=== PATIENT | male | born 1960 | race Caucasian/White ===

== ENCOUNTER 2019-08-02 00:31 | Day surgery (SDC) | payer OTHER, SELFPAY ==
[2019-07-30 14:46] VITALS: BMI 38.6
[2019-08-02 08:50] VITALS: BP 127/85; PULSE 58; RESP 20; TEMP 36.3; O2SAT 95
[2019-08-02] MEDS: LACTATED RINGERS 1,000 ML 150 ML IV CONT (08:59)
[2019-08-02 09:08] LABS: Glucose Point of Care 95 (65-105)
--- NOTE | 2019-08-02 09:12 | P.HP_ITS ---
History of Present Illness History of Present Illness Consent: Risks, benefits, and alternatives have been discussed and questions answered. Patient agrees to proceed with procedure. Chief complaint: Hx Colon Polyps Narrative: Gilbert Coulter is a 59 year old W male undergoing colonoscopy secondary history of colonic polyps. Last colonoscopy was 4 years ago. The bowel prep was only fair at that time there are several aunts and uncles on his mother side of the family with colon cancer. Patient is asymptomatic. [facility] Past Medical History Medical History Essential (primary) hypertension Surgical History Surgical History (Updated 08/02/19 @ 09:14 by Eddi Trejo MD) Status post surgical removal of ganglion cyst Social History Social History Smoking status: Never smoker Alcohol intake: current Meds Home Medications and Allergies Home Medications Medication Instructions Recorded Confirmed Type amlodipine 5 mg tablet 5 mg PO DAILY 04/29/19 07/30/19 History aspirin 81 mg tablet,delayed 81 mg PO DAILY 04/29/19 07/30/19 History release clopidogrel 75 mg tablet 75 mg PO DAILY 04/29/19 07/30/19 History cyanocobalamin (vitamin B-12) 1,000 mcg PO DAILY 04/29/19 07/30/19 History 1,000 mcg tablet diazepam 2 mg tablet 2 mg PO BID PRN 04/29/19 07/30/19 History lysine 500 mg tablet 500 mg PO DAILY 04/29/19 07/30/19 History metformin 500 mg tablet,extended 2,000 mg PO QPM tablet 04/29/19 07/30/19 History release 24 hr metoprolol tartrate 50 mg tablet 50 mg PO DAILY 04/29/19 07/30/19 History ondansetron HCl 4 mg tablet 4 mg PO Q8H 04/29/19 07/30/19 History hydrochlorothiazide 12.5 mg capsule 12.5 mg PO DAILY #30 cap 05/03/19 07/30/19 Rx lisinopril 40 mg tablet 40 mg PO DAILY #30 tablet 05/04/19 07/30/19 Rx simvastatin 40 mg tablet 40 mg PO DAILY #30 tablet 06/28/19 07/30/19 Rx isosorbide mononitrate 30 mg 30 mg PO DAILY #30 tablet 07/27/19 07/30/19 Rx tablet,extended release 24 hr Allergies Allergy/AdvReac Type Severity Reaction Status Date / Time No Known Allergies Allergy Verified 08/02/19 08:50 Vital Signs Vital Signs - 24 hr 08/02/19 08:50 Temperature 36.3 C L Pulse Rate 58 L Respiratory Rate 20 Blood Pressure 127/85 Pulse Oximetry 95 Exam Const: Orientation/consciousness: patient oriented x3 Resp: Auscultation: clear to auscultation bilaterally Cardio: Rate: regular rate Rhythm: regular rhythm Heart sounds: no murmurs GI: GI Palp: Yes Soft to palpation, No Tenderness to palpation present (GI), Yes No hepatosplenomegaly present and No Palpable mass present Auscultation: normal bowel sounds Neuro: General: patient oriented x3 and no focal motor deficits Extrem: General: no pedal edema Assessment and Plan Additional Plan screening colonoscopy secondary history of colonic polyps and a family history of colon cancer
--- NOTE | 2019-08-02 09:17 | WPDANESEPPF ---
Anes - Initial Pre Proc Eval Procedure: Operation Date: 08/02/19 10:00 Proposed Procedures p Screening Colonoscopy - Eddi Trejo MD Date/Time: 08/02/19 09:17 Surgeon: Eddi Trejo MD Pre Op Diagnosis: Hx Colon Polyps Patient Data Age: 59 Gender: M Height: 5 ft 6 in Weight: 108.6 kg Last Vital Signs Temp 36.3 C L 08/02/19 08:50 Pulse 58 L 08/02/19 08:50 Resp 20 08/02/19 08:50 BP 127/85 08/02/19 08:50 Pulse Ox 95 08/02/19 08:50 Allergies Allergy/AdvReac Type Severity Reaction Status Date / Time No Known Allergies Allergy Verified 08/02/19 08:50 Home Medications Medication Instructions Recorded Confirmed Type amlodipine 5 mg tablet 5 mg PO DAILY 04/29/19 07/30/19 History aspirin 81 mg tablet,delayed 81 mg PO DAILY 04/29/19 07/30/19 History release clopidogrel 75 mg tablet 75 mg PO DAILY 04/29/19 07/30/19 History cyanocobalamin (vitamin B-12) 1,000 mcg PO DAILY 04/29/19 07/30/19 History 1,000 mcg tablet diazepam 2 mg tablet 2 mg PO BID PRN 04/29/19 07/30/19 History lysine 500 mg tablet 500 mg PO DAILY 04/29/19 07/30/19 History metformin 500 mg tablet,extended 2,000 mg PO QPM tablet 04/29/19 07/30/19 History release 24 hr metoprolol tartrate 50 mg tablet 50 mg PO DAILY 04/29/19 07/30/19 History ondansetron HCl 4 mg tablet 4 mg PO Q8H 04/29/19 07/30/19 History hydrochlorothiazide 12.5 mg capsule 12.5 mg PO DAILY #30 cap 05/03/19 07/30/19 Rx lisinopril 40 mg tablet 40 mg PO DAILY #30 tablet 05/04/19 07/30/19 Rx simvastatin 40 mg tablet 40 mg PO DAILY #30 tablet 06/28/19 07/30/19 Rx isosorbide mononitrate 30 mg 30 mg PO DAILY #30 tablet 07/27/19 07/30/19 Rx tablet,extended release 24 hr Laboratory Tests 08/02/19 09:03 POC Capillary Glucose 95 mg/dl mg/dl (65-105) Patient hx anesthesia problems: none Family hx anesthesia problems: none PMFSH Past Medical History Medical History Essential (primary) hypertension Surgical History Surgical History Status post surgical removal of ganglion cyst Social History Social History Smoking status: Never smoker Alcohol intake: current Anes - Eval Final PreProcedure Day of Procedure 08/02/19 09:17 Patient weight: overweight Heart: regular rate and rhythm Lungs: clear to auscultation Airway: Mallampati scale class II Neurological: alert and oriented Last oral intake: >/= 8 hours ASA classification: III Emergent: no Anesthetic plan: proceed Anesthesia type and monitoring: general GIVS and standard monitoring Informed Consent: The patient's anesthetic plan and its attendant risks and benefits were discussed with the patient/family/POA. Questions were solicited and answers provided to the satisfaction of the patient/family/POA.
[2019-08-02 10:25] VITALS: BP 100/65; PULSE 61; RESP 20; O2SAT 92
[2019-08-02 10:35] VITALS: BP 103/67; PULSE 56; RESP 16; O2SAT 94
[2019-08-02 10:45] VITALS: BP 96/61; PULSE 52; RESP 15; O2SAT 98
== END 2019-08-02 11:00 | disposition home or self-care (01) ==
PROVIDERS: PCP Family Medicine; Visit Provider Internal Medicine Gastroenterology
PROC: 0DJD8ZZ Inspection of Lower Intestinal Tract, Via Natural or Artificial Opening Endoscopic (ICD-10-PCS; CPT 45378; principal; 2019-08-02 10:00)
DX: Z12.11 Encounter for screening for malignant neoplasm of colon (principal); Z86.010 Personal history of colon polyps; Z80.0 Family history of malignant neoplasm of digestive organs; I10 Essential (primary) hypertension; Z79.82 Long term (current) use of aspirin; Z79.02 Long term (current) use of antithrombotics/antiplatelets; Z79.84 Long term (current) use of oral hypoglycemic drugs
CPT/HCPCS: 45378; J2001; J2704; J7120

== ENCOUNTER 2019-08-23 01:11 | Day surgery (SDC) | payer OTHER, SELFPAY ==
[2019-08-23 11:25] VITALS: BP 158/84; PULSE 50; RESP 14; TEMP 36.6; O2SAT 99; BMI 37.9
--- NOTE | 2019-08-23 11:28 | P.HP_ITS ---
History of Present Illness History of Present Illness Consent: Risks, benefits, and alternatives have been discussed and questions answered. Patient agrees to proceed with procedure. Chief complaint: History Of polyps,neoplasm screening Narrative: Gilbert Coulter is a 59 year old W male referred for colonoscopy secondary history of colonic polyps. Last colonoscopy was 4 years ago. There is a history of colon cancer in several aunts and uncles on his mother side of the family. Patient had attempted colonoscopy approximately 6 weeks ago this could not be performed secondary to inadequate bowel prep. Patient returns now for examination. There been no interval changes in his medical history since then. He did stop his Plavix 4 days ago. [facility] Past Medical History Medical History Essential (primary) hypertension Surgical History Surgical History Status post surgical removal of ganglion cyst Social History Social History Smoking status: Never smoker Alcohol intake: current Meds Home Medications and Allergies Home Medications Medication Instructions Recorded Confirmed Type amlodipine 5 mg tablet 5 mg PO DAILY 04/29/19 08/23/19 History aspirin 81 mg tablet,delayed 81 mg PO DAILY 04/29/19 08/23/19 History release clopidogrel 75 mg tablet 75 mg PO DAILY 04/29/19 08/23/19 History cyanocobalamin (vitamin B-12) 1,000 mcg PO DAILY 04/29/19 08/23/19 History 1,000 mcg tablet diazepam 2 mg tablet 2 mg PO BID PRN 04/29/19 08/23/19 History lysine 500 mg tablet 500 mg PO DAILY 04/29/19 08/23/19 History metoprolol tartrate 50 mg tablet 50 mg PO DAILY 04/29/19 08/23/19 History ondansetron HCl 4 mg tablet 4 mg PO Q8H 04/29/19 08/23/19 History hydrochlorothiazide 12.5 mg capsule 12.5 mg PO DAILY #30 cap 05/03/19 08/23/19 Rx lisinopril 40 mg tablet 40 mg PO DAILY #30 tablet 05/04/19 08/23/19 Rx simvastatin 40 mg tablet 40 mg PO DAILY #30 tablet 06/28/19 08/23/19 Rx isosorbide mononitrate 30 mg 30 mg PO DAILY #30 tablet 07/27/19 08/23/19 Rx tablet,extended release 24 hr metformin 500 mg tablet,extended 2,000 mg PO QPM #120 tablet 08/18/19 08/23/19 Rx release 24 hr Allergies Allergy/AdvReac Type Severity Reaction Status Date / Time No Known Allergies Allergy Verified 08/23/19 11:22 Vital Signs Vital Signs - 24 hr 08/23/19 11:25 Temperature 36.6 C Pulse Rate 50 L Respiratory Rate 14 Blood Pressure 158/84 H Pulse Oximetry 99 Exam Const: Orientation/consciousness: patient oriented x3 Resp: Auscultation: clear to auscultation bilaterally Cardio: Rate: regular rate Rhythm: regular rhythm Heart sounds: no murmurs GI: GI Palp: Yes Soft to palpation, No Tenderness to palpation present (GI), Yes No hepatosplenomegaly present and No Palpable mass present Auscultation: normal bowel sounds Neuro: General: patient oriented x3 and no focal motor deficits Extrem: General: no pedal edema Assessment and Plan Additional Plan Screening colonoscopy secondary history of colonic polyps
[2019-08-23] MEDS: LACTATED RINGERS 1,000 ML 150 ML IV CONT (11:30)
[2019-08-23 11:35] LABS: Glucose Point of Care 94 (65-105)
[2019-08-23 11:54] VITALS: BP 108/70; PULSE 56; RESP 22; O2SAT 98
[2019-08-23 12:04] VITALS: BP 106/74; PULSE 50; RESP 21; O2SAT 98
[2019-08-23 12:12] VITALS: BP 128/66; PULSE 46; RESP 18; O2SAT 99
== END 2019-08-23 12:17 | disposition home or self-care (01) ==
PROVIDERS: PCP Family Medicine; Visit Provider Internal Medicine Gastroenterology
PROC: 0DJD8ZZ Inspection of Lower Intestinal Tract, Via Natural or Artificial Opening Endoscopic (ICD-10-PCS; CPT 45378; principal; 2019-08-23 12:00)
DX: Z12.11 Encounter for screening for malignant neoplasm of colon (principal); K64.8 Other hemorrhoids; K64.4 Residual hemorrhoidal skin tags; Z86.010 Personal history of colon polyps; I10 Essential (primary) hypertension; Z79.82 Long term (current) use of aspirin; Z79.02 Long term (current) use of antithrombotics/antiplatelets; Z79.84 Long term (current) use of oral hypoglycemic drugs
CPT/HCPCS: 45378; J2704; J7120

== ENCOUNTER 2020-06-22 13:22 | Outpatient (CLI) | payer OTHER, SELFPAY ==
--- NOTE | ~2020-06-22 | XR_ITS ---
XR lumbar spine min 4V DATE: 06/22/2020 13:42 INDICATION: Low back pain, left sciatica TECHNIQUE: AP, lateral, bilateral oblique views, coned lateral lumbosacral view COMPARISON: None FINDINGS: Diffuse osteopenia. There are 4 functional lumbar vertebrae. Normal alignment of the lumbar spine. No fracture or bone destruction is evident. The lumbar pedicles are intact. No spondylolysis or spondylolisthesis is evident. The pedicles appear relatively short in AP dimension; consider possible lumbar spinal stenosis. There is mild lumbar degenerative disc disease. The sacroiliac joints are intact. There is a prominent eggshell calcification of the left upper quadrant, possibly splenic; large splen ic artery aneurysm is not excluded. Consider CT abdomen examination for more definitive evaluation. IMPRESSION: Diffuse osteopenia Mild degenerative disc disease of the lumbar spine Reviewed, dictated and finalized at location B. [employer]
== END 2020-06-22 13:23 | disposition home or self-care (01) ==
LOC: ANHIMG 13:27
PROVIDERS: PCP Family Medicine; Visit Provider Family Medicine
DX: M54.42 Lumbago with sciatica, left side (principal); M54.41 Lumbago with sciatica, right side; M85.88 Other specified disorders of bone density and structure, other site; M51.36 Other intervertebral disc degeneration, lumbar region
CPT/HCPCS: 72110

== ENCOUNTER 2020-07-05 12:40 | Outpatient (CLI) | payer OTHER, SELFPAY ==
--- NOTE | ~2020-07-05 | CT_ITS ---
EXAMINATION: CT abdomen pelvis wo con DATE: 07/05/2020 13:05 INDICATION: Abnormal left upper quadrant calcification, low back pain TECHNIQUE: Computed tomography (CT) of the abdomen and pelvis was performed without intravenous contr ast. The dose-length product (DLP) was 968.47 mGy-cm. Automated exposure control and iterative recons truction technique were employed. COMPARISON: 06/22/2020 FINDINGS: There is moderate emphysema of the visualized lung bases. The heart size is normal. The tere er, pancreas, gallbladder, and adrenal glands are normal. There is a 4.5 cm rim calcified area of flu id attenuation in the upper pole of the spleen. An adjacent 5.6 cm area of fluid attenuation is prese nt in the upper pole of the spleen without rim calcification. The spleen is otherwise normal in appea mary carmen. The kidneys are unremarkable. There is calcified atherosclerosis of the aorta and many of the other arteries. No pathologically enlarged abdominal or pelvic lymph nodes are identified. There is n o free intraperitoneal gas or evidence of bowel obstruction. Colonic diverticulosis is present withou t evidence of diverticulitis. There is a fat-containing right inguinal hernia. The appendix is normal . There is mild lumbar spondylosis. IMPRESSION: 1. Rim calcified, fluid attenuation lesion of the spleen accounting for the radiographic finding in q uestion likely representing a cyst, prior trauma, or prior infection. Reviewed, dictated and finalized at location A. [employer] IMPRESSION: 1. Rim calcified, fluid attenuation lesion of the spleen accounting for the rad iographic finding in question likely representing a cyst, prior trauma, or prio r infection.
--- NOTE | ~2020-07-05 | DEXA_ITS ---
Bone Density Report Name: Gilbert Coulter Age: 60 Sex: Male Ethnicity: White Date of : 1960 Indication: Osteopenia Referring Provider: GIBRAN SAWYER Study: Bone densitometry was performed. Exam Date: July 05, 2020 Accession number: [id number] Bone Density: Region BMD T-score Z-score Classification AP Spine (L1-L4) 1.242 1.4 2.0 Normal Femoral Neck (Left) 0.745 -1.4 -0.4 Osteopenia Total Hip (Left) 0.951 -0.5 -0.1 Normal Femoral Neck (Right) 0.793 -1.0 -0.1 Normal Total Hip (Right) 0.969 -0.4 0.0 Normal Total Hip Mean 0.960 -0.5 -0.1 Normal World Health Organization criteria for BMD impression classify patients as: Normal (T-score at or above -1.0), Osteopenia (T-score between -1.0 and -2.5), or Osteoporosis (T-score at or below -2.5). 10-year Fracture Risk(1): Major Osteoporotic Fracture 4.8% Hip Fracture 0.4% Reported Risk Factors: [place] (), Neck BMD=0.745, BMI=38.8 (1) FRAX(R) Version 3.08. Fracture probability calculated for an untreated patient. Fracture probability may be lower if the patient has received treatment. Clinical Information Provided by Patient: Patient maximum height was 66 No regular weight bearing exercise Drinks caffeinated beverages Impression: The patient has low bone mass, based on the Left Femoral Neck T-score. The patient has an estimated ten-year risk of hip fracture of 0.4% and an estimated ten-year risk of major fracture of 4.8%, based on the WHO FRAX algorithm. Discussion: BONE DENSITY IS LOW AT ONE OR MORE SKELETAL SITES. This patient's lowest T-score is low at one or more skeletal sites. It meets the World Health Organization's (WHO) criteria for ?low bone mass? (T-score between -1.0 and -2.5). The patient's 10-year risk of fracture as calculated by FRAX is less than the threshold where pharmacological therapy is recommended by the National Osteoporosis Foundation (NOF). However, all treatment decisions require clinical judgment and consideration of individual patient factors, including patient preferences, comorbidities, previous drug use, risk factors not captured in the FRAX model (e.g., frailty, falls, vitamin D deficiency, increased bone turnover, interval significant decline in bone density) and possible under or overestimation of fracture risk by FRAX. The patient should follow a healthful lifestyle (good nutrition with adequate calcium and vitamin D, and appropriate weight-bearing exercise). Follow-Up: Consider repeating this study in 2 to 3 years to reassess this patient's status, or sooner if there is some new clinical indication. Reported by: BREE on 07/05/2020 2:10:00 PM. Reviewed, dictated and finalized at location A. [facility]ENTERMakeda
== END 2020-07-05 12:41 ==
PROVIDERS: PCP Family Medicine; Visit Provider Family Medicine
DX: M54.41 Lumbago with sciatica, right side (principal); M54.42 Lumbago with sciatica, left side; M85.88 Other specified disorders of bone density and structure, other site; M85.852 Other specified disorders of bone density and structure, left thigh
CPT/HCPCS: 74176; 77080

== ENCOUNTER → 2020-08-30 17:15 | Outpatient (CLI) | payer OTHER, SELFPAY ==
--- NOTE | ~2020-08-30 | MR_ITS ---
EXAMINATION: MR lumbar spine wo con DATE: 08/30/2020 18:00 INDICATION: Lumbar radiculopathy. TECHNIQUE: Magnetic resonance imaging (MRI) of the lumbar spine was performed without intravenous con trast. Sequences included sagittal T2-weighted FSE, sagittal T2-weighted FS FSE, sagittal T1-weighted FSE, and axial T2-weighted FSE. COMPARISON: None FINDINGS: Bone alignment is normal. Vertebral body heights are normal. There is mildly decreased disc height at L4-L5. Central spinal canal is developmentally small at L3 and L4. The conus medullaris is at L1. The following disc levels are specifically discussed: L1-L2: The disc does not extend beyond the endplate margin. There is mild bilateral facet joint osteo arthritis. There is no neural foraminal stenosis. There is no central canal stenosis. L2-L3: The disc is mildly bulging. There is mild bilateral facet joint osteoarthritis. There is mild bilateral neural foraminal stenosis. There is mild central canal stenosis. L3-L4: The disc is mildly bulging. There is mild bilateral facet joint osteoarthritis. There is mild bilateral neural foraminal stenosis. There is mild central canal stenosis. L4-L5: The disc is bulging and has an annular fissure. There is severe bilateral facet joint osteoart hritis. There is moderate bilateral neural foraminal stenosis. There is moderate central canal stenos is. L5-S1: The disc is mildly bulging. There is moderate bilateral facet joint osteoarthritis. There is m ild bilateral neural foraminal stenosis. There is mild central canal stenosis. IMPRESSION: 1. Moderate lumbar spondylosis. Reviewed, dictated and finalized at location A.
== END ==
PROVIDERS: Visit Provider Nurse Practitioner Family
DX: M47.26 Other spondylosis with radiculopathy, lumbar region (principal)
CPT/HCPCS: 72148

== ENCOUNTER 2023-03-21 14:25 | Outpatient (CLI) | payer BC, SELFPAY ==
--- NOTE | ~2023-03-21 | MR_ITS ---
EXAMINATION: MR brain/brain stem wo/w con DATE: 03/21/2023 15:13 INDICATION: Ataxia, unspecified. TECHNIQUE: Magnetic resonance imaging (MRI) of the brain and brainstem was performed without and with 20 mL MultiHance intravenous contrast. COMPARISON: None. FINDINGS: There are scattered areas of nonspecific increased T2-weighted signal intensity in the cere bral white matter. There is no intracranial hemorrhage, acute infarction, or abnormal intracranial ma ss lesion. The ventricles are normal in size. The orbits are normal. There is mild mucosal thickening in the paranasal sinuses. The mastoid air cells are normal. IMPRESSION: 1. Mild nonspecific cerebral white matter disease, which likely represents chronic small vessel ische ernie disease. Reviewed, dictated and finalized at location E. IMPRESSION: 1. Mild nonspecific cerebral white matter disease, which likely represents mass spectroscopist shaista small vessel ischemic disease.
== END 2023-03-21 14:26 | disposition home or self-care (01) ==
PROVIDERS: PCP Family Medicine; Visit Provider Family Medicine
DX: R27.0 Ataxia, unspecified (principal); R90.82 White matter disease, unspecified
CPT/HCPCS: 70553; A9577

== ENCOUNTER 2024-10-25 00:55 | Day surgery (SDC) | payer OTHER, SELFPAY ==
[2024-10-12 09:53] VITALS: BMI 35.9
--- NOTE | 2024-10-15 13:56 | PC.NURSE ---
Spoke with patient regarding medication Plavix. Patient verbalizes understanding that the last dose is to be taken on 10/19/2024 and the Endoscopist will instruct them when to restart after the procedure.
--- NOTE | 2024-10-15 14:09 | PC.NURSE ---
Tried to get cardiac clearance for patient with Dr. Cruz's ([facility]) office. Dr. Cruz is no longer in that practice and they are not able to give clearance. Pt was last seen by him in June 2024. Pt is going to call [facility] office and set up an appt to be seen so he can get cardiac clearance before this procedure. Pt will call back with that appointment so we can get him back on the schedule as soon as possible due to history of colon CA (2023). Pt has a hx of 11 cardiac stents, 7 vessel bypass in 1992, A-fib, R&L Carotid Repair. When patient answered the phone, he sounded SOB.
--- NOTE | 2024-10-15 14:16 | PC.NURSE ---
Pt called back and said he has an appt with cardiology on 10/21/24. Will notify the office and will get him rescheduled.
--- OUTSIDE RECORDS SUMMARY | 2024-10-25 01:00 | XMS_ITS | CONTINUITY OF CARE DOCUMENT ---
Author Name vtialiy beantonia Address Unknown Organization [facility] Address [address] [place] [address] Phone [phone] Care Team Providers Care Telephone Instrument Supervisor Name Role Phone Yenny Mccann MD Unavailable [phone] GIBRAN SAWYER MD Unavailable [phone] GIBRAN SAWYER MD Unavailable [phone] PROBLEMS Condition Status Date Provider Notes Diabetes Mellitus, Type II, controlled w/vascular complications active Yenny Mccann MD Hx of TOBACCO ABUSE active Yenny madera MD Shortness of breath active Tom Wihemant Dizziness active Solis Stark Palpitations active Solis Stark Coronavirus infection 04/2020 active Ken Rdz Diabetes mellitus active Ken Rdz Angina active Marc Briseno Carotid bruit bilateral active Yenny pimentel MD CAD active Eloisa Yost NP Sleep apnea active Yenny Mccann MD HTN essential active Yenny Mccann MD Chest pain-type to be determined active Marina Mccann MD Atrial Flutter active ? Yenny Mccann MD Other symptoms involving car diovascular system active Yenny Mccann MD Family History of CVA or Stroke: active ? Marina Mccann MD ENCOUNTERS Date Type Provider Location Encounter Diag nosis - In-person encounter Office Visit Yenny Mccann MD [facility] - In-person encounter Office Visit Yenny Mccann MD [facility] PalpitationsDizziness - In-person encounter Office Visit Yenny Mccann MD [facility] Diabetes mellitusCoronavirus infection 04/2020 - In-person encounter Office Visit Yenny Mccann MD [facility] - In-person encounter Office Visit Yenny Mccann MD [facility] Angina - In-person encounter Office Visit Yenny Mccann MD [facility] - In-person encounter Office Visit Yenny Mccann MD [facility] - In-person encounter Office Visit Yenny Mccann MD [facility] - In-person encounter Office Visit Yenny Mccann MD [facility] - In-person encounter Office Visit Yenny Mccann MD [facility] Carotid bruit bilateral - In-person encounter Office Visit Yenny Mccann MD [facility] CAD - In-person encounter Office Visit Yenny Mccann MD [facility] - In-person encounter Office Visit Yenny Mccann MD [facility] Family History of CVA or Stroke:Other symptoms involving cardiovascular systemAtrial FlutterChest pain-type to be determinedHTN essentialSleep apnea VITAL SIGNS Date Observation Value Provider Body Mass Index (Ratio) 38.73 kg/m2 Solis Stark respiratory rate E&M 20 /min Eloisa Powell pulse rate 69 /min Eloisa Powell blood pressure, cuff size regular Sh mehran Powell blood pressure, diastolic 84 mm[Hg] Dwayne Powell blood pressure, systolic 152 mm[Hg] She gigi Powell oxygen saturation, oximetry 97 % Eloisa Powell weight E&M 240 [lb_av] Eloisa Powell height E&M 66 [in_i] Eloisa Powell weight E&M 241 [lb_av] Ene Donaldson Body Mass Index (Ratio) 38.89 kg/m2 Solis Gustabojorge albertodevon blood pressure, cuff size large Ke rri Gruenenfeldwindy blood pressure, diastolic 94 mm[Hg] Ke rri Gruenenfelder blood pressure, systolic 152 mm[Hg] Johan Godoy oxygen saturation, oximetry 96 % Sally Godoy respiratory rate E&M 12 /min Sally mendezeldwindy pulse rate 73 /min Sally Dailey lder weight E&M 241 [lb_av] Sally Dailey lder height E&M 66 [in_i] Sally Carolenenfe lder Body Mass Index (Ratio) 43.41 kg/m2 Tamarli on Kendell blood pressure, diastolic -1 mm[Hg] Li nkLogic blood pressure, systolic 133 mm[Hg] Laurie kLogic blood pressure, diastolic 74 mm[Hg] Sa ra Santiago blood pressure, systolic 133 mm[Hg] Antony a Santiago oxygen saturation, oximetry 94 % Lisa Santiago respiratory rate E&M 18 /min Lisa Si ms pulse rate 65 /min Lisa Santiago blood pressure, cuff size regular Sa ra Santiago weight E&M 269 [lb_av] Lisa Santiago height E&M 66 [in_i] Lisa Santiago Body Mass Index (Ratio) 36.63 kg/m2 Jord en Finn blood pressure, cuff size regular Cy nttiffanie Gomez blood pressure, diastolic 82 mm[Hg] Cy nttiffanie Gomez blood pressure, systolic 142 mm[Hg] Corrine elsi Gomez oxygen saturation, oximetry 96 % Nereyda Gomez pulse rate 71 /min Nereydaelsi Magana l respiratory rate E&M 16 /min Nereydaelsi Gomez weight E&M 227 [lb_av] Nereyda Campbel l height E&M 66 [in_i] Nereydaelsi Savagebel l temperature site temporal Jesusita Tank sley temperature E&M 97.3 [degF] Jesusita Tanks phuong Body Mass Index (Ratio) 38.38 kg/m2 Jord en Finn blood pressure, diastolic 67 mm[Hg] Eric Bronsonjulien StephensonBolden blood pressure, systolic 105 mm[Hg] Lisa Bolden oxygen saturation, oximetry 96 % Sandy Bolden respiratory rate E&M 18 /min Mark Stephensonenson pulse rate 58 /min Sandy Emlvin nicholason weight E&M 237.8 [lb_av] Sandy osbornon height E&M 66 [in_i] Sandy Melvin nson Body Mass Index (Ratio) 41.80 kg/m2 Jord en Finn blood pressure, diastolic 80 mm[Hg] Ki lleen Calix blood pressure, systolic 136 mm[Hg] Kil rom Calix oxygen saturation, oximetry 94 % Josh Calix respiratory rate E&M 16 /min Oneida Calix pulse rate 65 /min Josh Calix weight E&M 259 [lb_av] Josh Calix height E&M 66 [in_i] Josh Calix Body Mass Index (Ratio) 41.64 kg/m2 Paxton Mccann MD blood pressure, diastolic 100 mm[Hg] Dragan torrez Calix blood pressure, systolic 160 mm[Hg] Darcy cueto Coleman oxygen saturation, oximetry 97 % Oneida Calix respiratory rate E&M 18 /min Josh Calix pulse rate 74 /[facility] 258 [lb_av] Oneida Calix height E&M 66 [in_i] [facility] Body Mass Index (Ratio) 40.35 kg/m2 Paxton Mccann MD blood pressure, diastolic 100 mm[Hg] Dragan torrez Coleman blood pressure, systolic 140 mm[Hg] Darcy cueto Coleman oxygen saturation, oximetry 98 % [facility] [employer] respiratory rate E&M 18 /min Josh Calix pulse rate 64 /min [facility] weight E&M 250 [lb_av] [facility] height E&M 66 [in_i] Oneida Calix Body Mass Index (Ratio) 41.25 kg/m2 Paxton Mccann MD blood pressure, diastolic 84 mm[Hg] Ervin isdulce Linh blood pressure, systolic 142 mm[Hg] Kri stcase Linh blood pressure, cuff size regular Ervin isdulce [place] blood pressure, resting Yes George cardona [place] oxygen saturation, oximetry 98 % Cayla Linh respiratory rate E&M 17 /min Cayla [place] pulse rate 68 /min Cayla [place] weight E&M 255.6 [lb_av] Cayla [place] height E&M 66 [in_i] Cayla [place] Body Mass Index (Ratio) 41.31 kg/m2 Paxton Mccann MD blood pressure, cuff size regular Ke rri Juliodejuan blood pressure, diastolic 100 mm[Hg] Ke rri Juliodejuan blood pressure, systolic 151 mm[Hg] Johan mae Usamalaverndejuan oxygen saturation, oximetry 97 % Sally Lamrolylaverndejuan respiratory rate E&M 18 /min Sally Feldman grantlaverndejuan pulse rate 72 /min Sally Dailey [facility] weight E&M 256 [lb_av] Sally Julioe er height E&M 66 [in_i] Sally Kime [facility] Body Mass Index (Ratio) 45.67 kg/m2 Raymundo Yost NP blood pressure, diastolic 90 mm[Hg] Eric Bolden blood pressure, systolic 157 mm[Hg] Lisa Bolden oxygen saturation, oximetry 96 % Sandy Bolden respiratory rate E&M 18 /min NurysMaire Bolden pulse rate 66 /min Sandy Charles za weight E&M 283 [lb_av] Sandy Charles za height E&M 66 [in_i] Sandy mendenhall blood pressure, diastolic 90 mm[Hg] Ut linda De Leon blood pressure, systolic 157 mm[Hg] Isabell [place] pulse rate 66 /min Gia De Leon oxygen saturation, oximetry 97 % Gia De Leon respiratory rate E&M 15 /min Gia De Leon Body Mass Index (Ratio) 45.67 kg/m2 [facility] De Leon weight E&M 283 [lb_av] Gia De Leon Body Mass Index (Ratio) 46.48 kg/m2 Llyy Callahan blood pressure, diastolic 86 mm[Hg] Me linda Callahan blood pressure, systolic 125 mm[Hg] Isabell Callahan pulse rate 78 /min Gia Callahan oxygen saturation, oximetry 97 % Gia Callahan respiratory rate E&M 16 /min Gia Callahan height E&M 66 [in_i] Gia Callahan weight E&M 288.0 [lb_av] Gia Callahan ALLERGIES No Known Drug Allergies RESULTS Date Observation Value Provider Reference Range Interpretation Location 3 magnesium, serum 1.8 mg/dL [facility] 1.6-2.3 3 pro brain natriuretic peptide 40 pg/mL [facility] 0-210 3 free thyroxine index 2.5 [facility] 1.2-4.9 3 triiodothyronine resin uptake 25 % [facility] 24-39 3 thyroxine, serum, total 10.0 ug/dL [facility] 4.5-12.0 3 thyroid stimulating hormone, serum 1.960 u[IU]/mL [facility] 0.450-4.500 3 lipoprotein, beta, serum, point, quantitative, calculated 79 mg/dL [facility] 0-99 3 HDL cholesterol, serum 25 mg/dL [facility] >39 Low 3 triglyceride, serum, random 152 mg/dL [facility] 0-149 High 3 cholesterol, serum 131 mg/dL [facility] 092-830 1502/06/0 3 alanine aminotransferase (SGPT), serum 15 1/L [facility] 0-44 3 aspartate aminotransferase (SGOT), serum 20 1/L [facility] 0-40 3 alkaline phosphatase, serum 79 1/L [facility] 44-121 3 bilirubin, serum, total 0.2 mg/dL [facility] 0.0-1.2 3 albumin/globulin ratio, serum 1.6 [facility] 1.2-2.2 3 globulin, serum 2.5 [facility] 1.5-4.5 3 albumin, serum 4.0 g/dL [facility] 3.8-4.8 3 protein, total, serum 6.5 g/dL [facility] 6.0-8.5 3 calcium, serum 8.9 mg/dL [facility] 8.6-10.2 3 carbon dioxide, venous blood 26 mmol/L [facility] 20-29 3 chloride, serum 99 mmol/L [facility] 96-106 3 potassium, serum 3.6 mmol/L [facility] 3.5-5.2 3 sodium, serum 142 mmol/L [facility] 157-283 4920/06/0 3 urea nitrogen/creatinine ratio, serum 19 [facility] 10-24 3 creatinine, serum 0.64 mg/dL [facility] 0.76-1.27 Low 3 urea nitrogen, blood 12 mg/dL [facility] 8-27 3 blood glucose, random 90 mg/dL [facility] 70-99 3 hemoglobin A1C, blood, as % of total hemoglobin 6.3 % [facility] 4.8-5.6 High 2 basophil count, absolute 0.0 x10E3/uL [facility] 0.0-0.2 2 Eosinophil Absolute Count 0.2 X10E3/UL [facility] 0.0-0.4 2 monocyte count, blood, automated 0.4 X10E3/UL [facility] 0.1-0.9 2 lymphocyte count, blood, automated 1.4 X10E3/UL [facility] 0.7-3.1 2 Absolute Neutrophils 4.4 X10E3/UL [facility] 1.4-7.0 2 basophils as percent of blood leukocytes 1 % [facility] Not Estab. 2 eosinophils as percent of blood leukocytes 3 % [facility] Not Estab. 2 monocytes as percent of blood leukocytes 7 % [facility] Not Estab. 2 lymphocytes as percent of blood leukocytes 21 % [facility] Not Estab. 2 neutrophils as percent of blood leukocytes 67 % [facility] Not Estab. 2 platelet count 270 X10E3/UL [facility] 509-465 3404/06/0 2 red blood cell distribution width 15.6 % [facility] 11.6-15.4 High 2 mean corpuscular hemoglobin concentration, RBC 32.1 G/DL [facility] 31.5-35.7 2 mean corpuscular hemoglobin, RBC 24.1 pg [facility] 26.6-33.0 Low 2 mean corpuscular volume, RBC 75 fL [facility] 79-97 Low 2 hematocrit, blood 38.3 % [facility] 37.5-51.0 2 hemoglobin, blood 12.3 g/dL [facility] 13.0-17.7 Low 2 erythrocyte (RBC) count 5.10 X10E6/UL [facility] 4.14-5.80 2 leukocyte count, blood 6.4 X10E3/UL [facility] 3.4-10.8 7 hemoglobin A1C, blood, as % of total hemoglobin 6.0 % OF TOTAL HGB [facility] <5.7 High 7 basophils as percent of blood leukocytes 0.7 % [facility] Normal 7 eosinophils as percent of blood leukocytes 3.7 % [facility] Normal 7 monocyte count, blood 7.7 % [facility] Normal 7 lymphocyte count, blood 26.5 % [facility] Normal 7 neutrophils as percent of blood leukocytes 61.4 % [facility] Normal 7 basophils, absolute, manual 49 cells/mcL [facility] 0-200 Normal 7 eosinophils, absolute, manual 259 cells/mcL [facility] 15-500 Normal 7 monocytes, absolute, manual 539 cells/mcL [facility] 200-950 Normal 7 lymphocytes, absolute 1855 CELLS/UL [facility] 850-3900 Normal 7 Absolute Neutrophil count 4298 cells/mcL [facility] 0881-5224 Normal 7 mean platelet volume 10.4 fL [facility] 7.5-12.5 Normal 7 platelet count 271 THOUSAND/ UL [facility] 140-400 Normal 7 red blood cell distribution width 15.1 % [facility] 11.0-15.0 High 7 mean corpuscular hemoglobin concentration, RBC 31.8 G/DL [facility] 32.0-36.0 Low 7 mean corpuscular hemoglobin, RBC 24.9 pg [facility] 27.0-33.0 Low 7 mean corpuscular volume, RBC 78.4 fL [facility] 80.0-100.0 Low 7 hematocrit, blood 42.2 % [facility] 38.5-50.0 Normal 7 hemoglobin electrophoresis, blood 13.4 [facility] 13.2-17.1 Normal 7 erythrocyte (RBC) count 5.38 MILLION/U L [facility] 4.20-5.80 Normal 7 leukocyte (white blood cells) count, blood 7.0 THOUSAND/ UL [facility] 3.8-10.8 Normal 7 PTT patient 30 s [facility] 22-34 Normal 7 calcium, serum 9.0 mg/dL [facility] 8.6-10.3 Normal 7 carbon dioxide, venous blood 29 mmol/L [facility] 20-31 Normal 7 chloride, serum 106 mmol/L [facility] 98-110 Normal 7 potassium, serum 4.1 mmol/L [facility] 3.5-5.3 Normal 7 sodium, serum 144 mmol/L [facility] 135-146 Normal 7 urea nitrogen/creatinine ratio, serum 24 (calc) [facility] 6-22 High 7 Estimated Glomerular Filtration Rate (calc) 133 mL/min/{1 .73_m2} LinkLogic > OR = 60 Normal 7 creatinine, serum 0.58 mg/dL [facility] 0.70-1.33 Low 7 urea nitrogen, blood 14 mg/dL [facility] 7-25 Normal 7 blood glucose, random 106 mg/dL [facility] 65-99 High 7 cholesterol, non-HDL, total 119 MG/DL (CALC) [facility] <130 Normal 7 cholesterol/HDL ratio, serum, percent 5.3 (calc) [facility] <5.0 High 7 LDL cholesterol, serum 95 MG/DL (CALC) [facility] Normal 7 triglyceride, serum, fasting 147 mg/dL [facility] <150 Normal 7 HDL cholesterol, serum 28 mg/dL [facility]ic >40 Low 7 cholesterol, serum 147 mg/dL [facility] <200 Normal HISTORY OF MEDICATION USE Medication Status Instructions Dates Provider Indications Com ments Aspirin Childrens 81 mg tablet,chewable active CHEW AND SWALLOW 1 TABLET BY MOUTH EVERY DAY Leticia Weaver NP simvastatin 40 mg tablet active TAKE 1 TABLET BY MOUTH ONCE DAILY Leticia Weaver NP metoprolol tartrate 50 mg tablet active TAKE 1/2 TABLET BY MOUTH EVERY DAY [facility] hydrochlorothiazide 25 mg tablet active TAKE 1 TABLET BY MOUTH EVERY DAY [facility] lisinopril 20 mg tablet active TAKE 1 TABLET BY MOUTH EVERY DAY [facility] amlodipine 2.5 mg tablet active TAKE 1 TABLET BY MOUTH EVERY DAY [facility] clopidogrel 75 mg tablet active TAKE 1 TABLET BY MOUTH EVERY DAY [facility] isosorbide mononitrate 30 mg tablet extended release 24 hr active TAKE 1 TABLET BY MOUTH EVERY DAY [facility] hydrochlorothiazide 25 mg tablet completed Take 1 tablet by mouth once a [facility].5 mg tablet completed Take 1 tablet by mouth once a day - Leticia Rushing clopidogrel 75 mg tablet completed Take 1 tablet by mouth once a day - Leticia Rushing #30, 30 days supply, Prescribed by GIBRAN SAWYER, Filled 12/19/2018 lisinopril 20 mg tablet completed Take 1 tablet by mouth once a day - Leticia Rushi isosorbide mononitrate 30 mg tablet extended release 24 hr completed Take 1 tablet by mouth once a day - Leticia Rushing isosorbide mononitrate 30 mg tablet extended release 24 hr completed Take 1 tablet by mouth once a day - João Fernandez RN diazepam 2 mg tablet active Take 1 tabl et by mouth twice a day as needed João Fernandez RN #30, 15 days supply, Prescribed by GIBRAN SAWYER, Filled 12/10/2018 simvastatin 40 mg tablet completed Take 1 tablet by mouth once a day - Tamiko Polanco #90, 90 days supply, Prescribed by GIBRAN SAWYER, Filled 12/04/2018 metformin 500 mg tablet extended release 24 hr active Take 2 tablet by mouth twice a day Leticia Weaver [facility] #120, 30 days supply, Prescribed by GIBRAN SAWYER, Filled 12/10/2018 amlodipine 5 mg tablet completed Take 0.5 tablet by mouth every night - Ken Rdz #30, 30 days supply, Prescribed by GIBRAN SAWYER, Filled 12/10/2018 HYDROCHLOROTHIAZIDE 12.5 MG ORAL TABLET completed TK 1 T PO QD FOR HYPERTENSION - Marc Briseno #30, 30 days supply, Prescribed by GIBRAN SAWYER, Filled 12/19/2018 clopidogrel 75 mg tablet completed Take 1 tablet by mouth once a day - Ken Rdz #30, 30 days supply, Prescribed by GIBRAN SAWYER, Filled 12/19/2018 metoprolol tartrate 50 mg tablet completed Take 0.5 tablet by mouth once a day - Jeovanysabas Kendell #60, 30 days supply, Prescribed by GIBRAN SAWYER, Filled 12/30/2018 hydrochlorothiazide 25 mg tablet completed Take 1 tablet by mouth once a day - Jeovanymarlimohan Rdz nitroglycerin 0.4 mg tablet, sublingual active 1 tablet under tongue Yenny Mccann MD If no resolution of chest pain, call 911. COREG 25 MG ORAL TABLET completed ONE TAB. TWICE DAILY - Josh Calix TRAMADOL HCL 50 MG ORAL TABLET completed TK 1 T PO QID PRN P. TAKE WITH TYLENOL 325MG - Josh Calix #120, 30 days supply, Prescribed by GIBRAN SAWYER, Filled 12/18/2016 METFORMIN HCL TABS 500 MGMETFORMIN HCL TABS) completed one pill in the am 2 in the afternoon and 2 at night - Josh Calix ATORVASTATIN CALCIUM 10 MG ORAL TABLET completed once daily - Josh Fifi aspirin 81 mg tablet,delayed release (/EC) completed Take 1 tablet by mouth once a day - Ken Rdz lisinopril 40 mg tablet completed Take 0.5 tablet by mouth once a day - Ken Rdz PLAVIX 75 MG ORAL TABLET completed ONE TAB. DAILY - Josh Calix MAGNESIUM OXIDE 400 MG ORAL TABLET completed ONE TAB TWICE A DAY - Sandy Bolden COZAAR 100 MG ORAL TABLET completed once daily - Sandy Bolden DYAZIDE 37.5-25 MG ORAL CAPSULE completed once daily - Sandy Bolden SOCIAL HISTORY Date Observation Value Provider smoking status Never smoker Eloisa Sherry social history reviewed E&M revi ewed - no changes required Solis Stark social history reviewed E&M revi ewed - no changes required Ken Rdz social history reviewed E&M revi ewed - no changes required Marc Briseno smoking, year quit 2013 Nereyda Dudley dusty smoking, date started 1975 Jordan apple Gomez smoking history, tot al pack/day 2 Nereyda Gomez cigarette use yes Nereyda Huertas deja smoking status Former smoker Nereyda villavicencio social history reviewed E&M revi ewed - no changes required Marc Finn smoking, year quit 2013 Sandy Bolden smoking, date started 1975 Sotero Bolden smoking history, tot al pack/day 2 Sandy Bolden cigarette use yes Sandy Stephenson enson smoking status Former smoker Sandy Lyon social history reviewed E&M revi ewed - no changes required Marc Finn number of grandchildren [facility], year quit 2013 Josh almazan smoking, date started 1974 Damien victoria Calix smoking history, tot al pack/day 2 Josh Calix cigarette use yes Josh Calix smoking status Former smoker Josh [facility] smoking, year quit 2013 Yenny lowery MD smoking, date started 1975 Margarette Mccann MD smoking history, tot al pack/day 2 Yenny Mccann MD cigarette use yes Yenny wayne MD smoking status Former smoker Yenny pimentel MD social history reviewed E&M revi ewed - no changes required Yenny Mccann MD smoking, year quit 2013 Yenny lowery MD smoking, date started 1975 Margarette Mccann MD smoking history, tot al pack/day 2 Yenny Mccann MD cigarette use yes Yenny wayne MD smoking status Former smoker Yenny pimentel MD social history reviewed E&M revi ewed - no changes required Yenny Mccann MD smoking, year quit 2013 Yenny lowery MD smoking, date started 1974 Margarette Mccann MD smoking history, tot al pack/day 2 Yenny Mccann MD cigarette use yes Yenny wayne MD smoking status Former smoker Yenny pimentel MD social history reviewed E&M revi ewed - no changes required Yenny Mccann MD social history reviewed E&M revi ewed - no changes required Yenny Mccann MD smoking, year quit 2013 Sally Grdanette castellanos smoking, date started 1974 Sally Godoy smoking history, tot al pack/day 2 Sally Godoy cigarette use yes Sally zaidi smoking status Former smoker Sally Usama blackburn smoking, year quit 2013 SandyEdel Stephensonenson smoking, date started 1974 Sotero Bolden smoking history, tot al pack/day 2 Sandy Bolden cigarette use yes Sandy Stephenson adams smoking status Former smoker Sandy St hammer social history E&M Smoking Histo ry: P atient is a former smoker. Yenny Mccann MD social history reviewed E&M revi ewed - no changes required Yenny Mccann MD smoking, year quit 2013 Gia Poole smoking, date started 1975 Jai De Leon smoking history, tot al pack/day 2 Gia De Leon cigarette use yes Gia De Leon smoking status Former smoker Gia Mcleanzechariah hale social history E&M S moking History: P atient is a former smoker. Yenny Mccann MD smoking/tobacco cess ation, patient education and counseling No Yenny Mccann MD social history reviewed E&M revi ewed - no changes required Yenny Mccann MD smoking, year quit 2013 Gia redd smoking, date started 1974 Jai Callahan smoking history, tot al pack/day 2 Gia Callahan cigarette use yes Gia Callahan smoking status Former smoker Gia Callahan FUNCTIONAL STATUS Date Observation Value Provider HRA, CV Assess/Plan, Angina (inactive) Management Plan continue current therapy Leticia Weaver NP HRA, CV Assess/Plan, Angina (inactive) Management Plan continue current therapy Solis Stark HRA, CV Assess/Plan, Angina (inactive) Management Plan continue current therapy Marc Briseno HRA, CV Assess/Plan, Angina (inactive) Management Plan continue current therapy, antianginal therapy Marc Briseno HRA, CV Assess/Plan, Angina (inactive) Management Plan continue current therapy Marc Briseno FAMILY HISTORY Family Member Condition Father Family History of CV A or Stroke: Mother Family History Emilie burt Cancer: INSURANCE PROVIDERS Payer name Policy type / Coverage type [place] red libertarian ID [facility] Other [id number] ADVANCE DIRECTIVES Name Date DISCUSSED - NO DECISION MADE TREATMENT PLAN Date Name Performer [id number],C,T ELESENTRY: 11/22/22 Sinus rhythm with rare ventricular ectopy and rare supraventricular ectopy. The average heart rate was 67 bpm with a minimum heart rate of 45 bpm and a maximum heart rate of 118 bpm. VE burden was <0.1% and observed as 5 isolated beats. SVE burden was <0.1% and observed as 466 isolated beats, 8 couplets, 2 triplets, and 1 run. SV-run was 6@111 bpm, lasting less than 3 seconds Leticia Weaver NP [id number],C, B P today: 152/84 P rior BP: 152/94 (11/15/2022) Labs Reviewed: C reat: 0.64 (11/16/2022) C hol: 131 (11/16/2022) HDL: 25 (11/16/2022) His updated medication list for this problem includes: Metoprolol Tartrate 50 Mg Tablet (Metoprolol tartrate) ..... Take 1/2 tablet by mouth every day Hydrochlorothiazide 25 Mg Tablet (Hydrochlorothiazide) ..... Take 1 tablet by mouth every day Lisinopril 20 Mg Tablet (Lisinopril) ..... Take 1 tablet by mouth every day Amlodipine 2.5 Mg Tablet (Amlodipine) ..... Take 1 tablet by mouth every day Leticia Eduardobinta TURNER [id number],C,S TRESS TEST: 12/10/22 no evidence of ischemia E CHO: 11/20/22: EF 65%, impaired LV relaxation, trace MR, mild TR. P FTs: minimal obstructive airways disease, No significant changes in FEV1 when compared to previous study. T ELESENTRY: 11/22/22 Sinus rhythm with rare ventricular ectopy and rare supraventricular ectopy. The average heart rate was 67 bpm with a minimum heart rate of 45 bpm and a maximum heart rate of 118 bpm. VE burden was <0.1% and observed as 5 isolated beats. SVE burden was <0.1% and observed as 466 isolated beats, 8 couplets, 2 triplets, and 1 run. SV-run was 6@111 bpm, lasting less than 3 seconds Leticia Phil YUE [id number],C,c ompliant with cpap [facility] [id number],C, N o chest pain. Totally occluded LAD, which is old with good collateralization f rom RPDA via epicardial. Also the IFR of the lesions in the RCA, u nknown significance. ECHO: 11/20/22: EF 65%, impaired LV relaxation, trace MR, mild TR Leticia Fennavdeep [employer] SPECIALIST [id number],C,w ith associated dizziness. will check carotids and CT head without contrast. see #1 Leticia Weaver NP [id number],C,E CHO: 11/20/22: EF 65%, impaired LV relaxation, trace MR, mild TR. TELESENTRY: 11/22/22 Sinus rhythm with rare ventricular ectopy and rare supraventricular ectopy. The average heart rate was 67 bpm with a minimum heart rate of 45 bpm and a maximum heart rate of 118 bpm. VE burden was <0.1% and observed as 5 isolated beats. SVE burden was <0.1% and observed as 466 isolated beats, 8 couplets, 2 triplets, and 1 run. SV-run was 6@111 bpm, lasting less than 3 seconds may need to consider loop recorder in future. see #1 Leticiamichael Eduardobinta FRANCHISE SPECIALIST [id number],C,c ontinues to have dizziness, NOT described as vertigo, but dizziness with 'off balance' that continues to get worse over the last several months, to the point where he is afraid to drive his motorcycle because he doesnt' want to lose balance. STRESS TEST: 12/10/22 no evidence of ischemia E CHO: 11/20/22: EF 65%, impaired LV relaxation, trace MR, mild TR. P FTs: minimal obstructive airways disease, No significant changes in FEV1 when compared to previous study. T ELESENTRY: 11/22/22 Sinus rhythm with rare ventricular ectopy and rare supraventricular ectopy. The average heart rate was 67 bpm with a minimum heart rate of 45 bpm and a maximum heart rate of 118 bpm. VE burden was <0.1% and observed as 5 isolated beats. SVE burden was <0.1% and observed as 466 isolated beats, 8 couplets, 2 triplets, and 1 run. SV-run was 6@111 bpm, lasting less than 3 seconds neuro exam intact, no facial droop or uniltateral weakness given continued dizziness despite negative work up to date, will check carotids and CT brain without contrast. if this testing is negative and dizziness continues, will consider loop recorder. Leticia Meg TURNER [id number],C,will check PF Ts, has hx of smoking Solis Whiteheaddevon [id number],C,A dvised him to monitor his BP at home and limit salt intake BP today: 152/94 P rior BP: 133/-1 (07/20/2021) Labs Reviewed: C reat: 0.58 (03/02/2017) C hol: 147 (03/02/2017) HDL: 28 (03/02/2017) LDL: 95 MG/DL (CALC) (03/02/2017) T (03/02/2017) Solis Stark [id number],C,d izziness which is occurring more and not improving, associated with palpitations, will check echo, stress test and tele to evaluate Solis Stark [id number],C,per PCP Solis Stark [id number],C,o nset of random palpitations which do not last long and are not improving, will check routine stress and tele to assess further Solis Stark [id number],C, O rders: C ovid Antibody Igg (03693) Jeovanysabas Kendell [id number],C, T he patient is using CPAP on a regular basis. The patient has been benefiting from therapy and should continue use. Ken Rdz [id number],B, B P today: 133/74 P rior BP: 142/82 (11/19/2019) His updated medication list for this problem includes: Metoprolol Tartrate 50 Mg Tablet (Metoprolol tartrate) ..... Take 0.5 tablet by mouth once a day Hydrochlorothiazide 25 Mg Tablet (Hydrochlorothiazide) ..... Take 1 tablet by mouth once a day Lisinopril 40 Mg Tablet (Lisinopril) ..... Take 0.5 tablet by mouth once a day Amlodipine 5 Mg Tablet (Amlodipine) ..... Take 0.5 tablet by mouth every night Aspirin 81 Mg Tablet,delayed Release (dr/ec) (Aspirin) ..... Take 1 tablet by mouth once a day Ken Rdz [id number],C, N o chest pain. Totally occluded LAD, which is old with good collateralization f rom RPDA via epicardial. Also the IFR of the lesions in the RCA, u nknown significance. last echo Conclusions: 1 . Normal left ventricular systolic function. Normal left ventricular size. Normal left ventricular wall t hickness. There is E to A wave reversal consistent with impaired LV relaxation. Normal E/E` 7.0. Left v entricular ejection fraction is estimated at 60 %. 2 . The mitral valve is normal in appearance and function. There is trace physiologic mitral valve r egurgitation. 3 . The tricuspid valve is normal in appearance and function. There is trace physiologic tricuspid valve r egurgitation. The IVC is not well visualized. Unable to adequately assess the RVSP. Ken Rdz [id number],B, H is updated medication list for this problem includes: Lisinopril 40 Mg Tablet (Lisinopril) ..... Take 0.5 tablet by mouth once a day Aspirin 81 Mg Tablet,delayed Release (dr/ec) (Aspirin) ..... Take 1 tablet by mouth once a day Metformin 500 Mg Tablet Extended Release 24 Hr (Metformin) ..... Take 4 tablet by mouth every night Ken Rdz Cardiology -STOP STIVEN VIX FOR % DAYS not [address] Mccann: O rders: H EMOGLOBIN A1c (496) Yenny Mccann MD Cardiology -STOP STIVEN VIX FOR % DAYS not [address] Siobhan Mccann MD Cardiology -STOP STIVEN VIX FOR % DAYS not [address] Mccann: H is updated medication list for this problem includes: Hydrochlorothiazide 25 Mg Tablet (Hydrochlorothiazide) ..... Take 1 tablet by mouth every day Metoprolol Tartrate 50 Mg Tablet (Metoprolol tartrate) ..... Take 1/2 tablet by mouth every day Lisinopril 20 Mg Tablet (Lisinopril) ..... Take 1 tablet by mouth every day Amlodipine 2.5 Mg Tablet (Amlodipine) ..... Take 1 tablet by mouth every day Aspirin Childrens 81 Mg Tablet,chewable (Aspirin) ..... Chew and swallow 1 tablet by mouth every day Yenny Mccann MD Cardiology -STOP STIVEN VIX FOR % DAYS not [address] Mccann:Extensive review of the pertinent previous and curent labs , EKGs, cardiac tesing and imaging data was done by Dr. Mccann Do labs and chest xray at [facility] ECHO and carotids [place] he is cleared for colonoscopy - stop plavix 5 days before, last dose of plavix on 10/20/2024 in AM H is updated medication list for this problem includes: Metoprolol Tartrate 50 Mg Tablet (Metoprolol tartrate) ..... Take 1/2 tablet by mouth every day Isosorbide Mononitrate 30 Mg Tablet Extended Release 24 Hr (Isosorbide mononitrate) ..... Take 1 tablet by mouth every day Lisinopril 20 Mg Tablet (Lisinopril) ..... Take 1 tablet by mouth every day Amlodipine 2.5 Mg Tablet (Amlodipine) ..... Take 1 tablet by mouth every day Clopidogrel 75 Mg Tablet (Clopidogrel) ..... Take 1 tablet by mouth every day Aspirin Childrens 81 Mg Tablet,chewable (Aspirin) ..... Chew and swallow 1 tablet by mouth every day Nitroglycerin 0.4 Mg Tablet, Sublingual (Nitroglycerin) ..... 1 tablet under tongue Yenny Mccann MD Cardiology -STOP STIVEN VIX FOR % DAYS not [address] Mccann: O rders: C arotid Duplex Bilateral (CPT-74184) C OMPREHENSIVE METABOLIC PANEL, W/EGFR (08889) L IPID PANEL (7600) C BC (INCLUDES DIFF/PLT) (6399) T SH, free T4, total T3 (7444) P ROBNP, N TERMINAL (75732) Yenny Mccann MD Electrophysiology:TE LESENTRY: 11/22/22 Sinus rhythm with rare ventricular ectopy and rare supraventricular ectopy. The average heart rate was 67 bpm with a minimum heart rate of 45 bpm and a maximum heart rate of 118 bpm. VE burden was <0.1% and observed as 5 isolated beats. SVE burden was <0.1% and observed as 466 isolated beats, 8 couplets, 2 triplets, and 1 run. SV-run was 6@111 bpm, lasting less than 3 seconds Leticia Weaver NP Electrophysiology: B P today: 152/84 P rior BP: 152/94 (11/15/2022) Labs Reviewed: C reat: 0.64 (11/16/2022) C hol: 131 (11/16/2022) HDL: 25 (11/16/2022) His updated medication list for this problem includes: Metoprolol Tartrate 50 Mg Tablet (Metoprolol tartrate) ..... Take 1/2 tablet by mouth every day Hydrochlorothiazide 25 Mg Tablet (Hydrochlorothiazide) ..... Take 1 tablet by mouth every day Lisinopril 20 Mg Tablet (Lisinopril) ..... Take 1 tablet by mouth every day Amlodipine 2.5 Mg Tablet (Amlodipine) ..... Take 1 tablet by mouth every day Leticia Weaver NP Electrophysiology:ST RESS TEST: 12/10/22 no evidence of ischemia E CHO: 11/20/22: EF 65%, impaired LV relaxation, trace MR, mild TR. P FTs: minimal obstructive airways disease, No significant changes in FEV1 when compared to previous study. T ELESENTRY: 11/22/22 Sinus rhythm with rare ventricular ectopy and rare supraventricular ectopy. The average heart rate was 67 bpm with a minimum heart rate of 45 bpm and a maximum heart rate of 118 bpm. VE burden was <0.1% and observed as 5 isolated beats. SVE burden was <0.1% and observed as 466 isolated beats, 8 couplets, 2 triplets, and 1 run. SV-run was 6@111 bpm, lasting less than 3 seconds Leticia Weaver NP Electrophysiology:co mpliant with cpap Leticia Weaver NP Electrophysiology: N o chest pain. Totally occluded LAD, which is old with good collateralization f rom RPDA via epicardial. Also the IFR of the lesions in the RCA, u nknown significance. ECHO: 11/20/22: EF 65%, impaired LV relaxation, trace MR, mild TR Leticia Weaver NP Electrophysiology:wi th associated dizziness. will check carotids and CT head without contrast. see #1 Leticia Eduardobinta FRANCHISE SPECIALIST Electrophysiology:EC HO: 11/20/22: EF 65%, impaired LV relaxation, trace MR, mild TR. TELESENTRY: 11/22/22 Sinus rhythm with rare ventricular ectopy and rare supraventricular ectopy. The average heart rate was 67 bpm with a minimum heart rate of 45 bpm and a maximum heart rate of 118 bpm. VE burden was <0.1% and observed as 5 isolated beats. SVE burden was <0.1% and observed as 466 isolated beats, 8 couplets, 2 triplets, and 1 run. SV-run was 6@111 bpm, lasting less than 3 seconds may need to consider loop recorder in future. see #1 Leticia Eduardobinta FRANCHISE SPECIALIST Electrophysiology:co ntinues to have dizziness, NOT described as vertigo, but dizziness with 'off balance' that continues to get worse over the last several months, to the point where he is afraid to drive his motorcycle because he doesnt' want to lose balance. STRESS TEST: 12/10/22 no evidence of ischemia E CHO: 11/20/22: EF 65%, impaired LV relaxation, trace MR, mild TR. P FTs: minimal obstructive airways disease, No significant changes in FEV1 when compared to previous study. T ELESENTRY: 11/22/22 Sinus rhythm with rare ventricular ectopy and rare supraventricular ectopy. The average heart rate was 67 bpm with a minimum heart rate of 45 bpm and a maximum heart rate of 118 bpm. VE burden was <0.1% and observed as 5 isolated beats. SVE burden was <0.1% and observed as 466 isolated beats, 8 couplets, 2 triplets, and 1 run. SV-run was 6@111 bpm, lasting less than 3 seconds neuro exam intact, no facial droop or uniltateral weakness given continued dizziness despite negative work up to date, will check carotids and CT brain without contrast. if this testing is negative and dizziness continues, will consider loop recorder. Leticia Meg TURNER Electrophysiology:will check PFT s, has hx of smoking Solis Beltranlakeisha Electrophysiology:Ad vised him to monitor his BP at home and limit salt intake BP today: 152/94 P rior BP: 133/-1 (07/20/2021) Labs Reviewed: C reat: 0.58 (03/02/2017) C hol: 147 (03/02/2017) HDL: 28 (03/02/2017) LDL: 95 MG/DL (CALC) (03/02/2017) T (03/02/2017) Solis Stark Electrophysiology:di zziness which is occurring more and not improving, associated with palpitations, will check echo, stress test and tele to evaluate Solis Stark Electrophysiology:per PCP Solis jaimes Electrophysiology:on set of random palpitations which do not last long and are not improving, will check routine stress and tele to assess further Solis Stark Cardiology: O rders: C ovid Antibody Igg (56842) Ken Rdz Cardiology: T he patient is using CPAP on a regular basis. The patient has been benefiting from therapy and should continue use. Ken Rdz Cardiology: B P today: 133/74 P rior BP: 142/82 (11/19/2019) His updated medication list for this problem includes: Metoprolol Tartrate 50 Mg Tablet (Metoprolol tartrate) ..... Take 0.5 tablet by mouth once a day Hydrochlorothiazide 25 Mg Tablet (Hydrochlorothiazide) ..... Take 1 tablet by mouth once a day Lisinopril 40 Mg Tablet (Lisinopril) ..... Take 0.5 tablet by mouth once a day Amlodipine 5 Mg Tablet (Amlodipine) ..... Take 0.5 tablet by mouth every night Aspirin 81 Mg Tablet,delayed Release (dr/ec) (Aspirin) ..... Take 1 tablet by mouth once a day Ken Rdz Cardiology: N o chest pain. Totally occluded LAD, which is old with good collateralization f rom RPDA via epicardial. Also the IFR of the lesions in the RCA, u nknown significance. l ast echo Conclusions: 1 . Normal left ventricular systolic function. Normal left ventricular size. Normal left ventricular wall t hickness. There is E to A wave reversal consistent with impaired LV relaxation. Normal E/E` 7.0. Left v entricular ejection fraction is estimated at 60 %. 2 . The mitral valve is normal in appearance and function. There is trace physiologic mitral valve r egurgitation. 3 . The tricuspid valve is normal in appearance and function. There is trace physiologic tricuspid valve r egurgitation. The IVC is not well visualized. Unable to adequately assess the RVSP. Ken Rdz Cardiology: H is updated medication list for this problem includes: Lisinopril 40 Mg Tablet (Lisinopril) ..... Take 0.5 tablet by mouth once a day Aspirin 81 Mg Tablet,delayed Release (dr/ec) (Aspirin) ..... Take 1 tablet by mouth once a day Metformin 500 Mg Tablet Extended Release 24 Hr (Metformin) ..... Take 4 tablet by mouth every night Ken Rdz Cardiology:This ashley ent has angina (defined as chest pain, chest discomfort, or pain in arms, neck, jaw, shoulder, or back, and may include symptoms of shortness of breath, fatigue, dizziness, nausea, or diaphoresis) of [place] [employer] Class III (defined as symptoms with everyday living activities, i.e. moderate limitation) or [place] Cardi[employer] Society Class IV (defined as inability to perform any activity without angina or angina at rest, i.e. severe limitation). Marc Briseno Cardiology: H is updated medication list for this problem includes: Amlodipine Besylate 5 Mg Oral Tablet (Amlodipine besylate) ..... Half a tablet daily at night Metoprolol Tartrate 50 Mg Oral Tablet (Metoprolol tartrate) ..... Half a tablet daily Hydrochlorothiazide 25 Mg Oral Tablet (Hydrochlorothiazide) ..... 1 tab daily Aspirin Adult Low Dose 81 Mg Oral Tablet Delayed Release (Aspirin) ..... One tab by mouth daily Lisinopril 40 Mg Oral Tablet (Lisinopril) ..... Half a tablet daily Marc Briseno Cardiology: H is updated medication list for this problem includes: Amlodipine Besylate 5 Mg Oral Tablet (Amlodipine besylate) ..... Half a tablet daily at night Metoprolol Tartrate 50 Mg Oral Tablet (Metoprolol tartrate) ..... Half a tablet daily Hydrochlorothiazide 25 Mg Oral Tablet (Hydrochlorothiazide) ..... 1 tab daily Aspirin Adult Low Dose 81 Mg Oral Tablet Delayed Release (Aspirin) ..... One tab by mouth daily Lisinopril 40 Mg Oral Tablet (Lisinopril) ..... Half a tablet daily [facility] Cardiology:Totally o ccluded LAD, which is old with good collateralization f rom RPDA via epicardial. Also the IFR of the lesions in the RCA, u nknown significance. last echo Conclusions: 1 . Normal left ventricular systolic function. Normal left ventricular size. Normal left ventricular wall t hickness. There is E to A wave reversal consistent with impaired LV relaxation. Normal E/E` 7.0. Left v entricular ejection fraction is estimated at 60 %. 2 . The mitral valve is normal in appearance and function. There is trace physiologic mitral valve r egurgitation. 3 . The tricuspid valve is normal in appearance and function. There is trace physiologic tricuspid valve r egurgitation. The IVC is not well visualized. Unable to adequately assess the RVSP. [facility] Electrophysiology:Wi ll start pt on ecp therapy Exertional angina and sometimes motion angina. Cath done at 07/16/2019 show no significant disease, total LAD occlusion. [facility] Electrophysiology:la st echo Conclusions: 1 . Normal left ventricular systolic function. Normal left ventricular size. Normal left ventricular wall t hickness. There is E to A wave reversal consistent with impaired LV relaxation. Normal E/E` 7.0. Left v entricular ejection fraction is estimated at 60 %. 2 . The mitral valve is normal in appearance and function. There is trace physiologic mitral valve r egurgitation. 3 . The tricuspid valve is normal in appearance and function. There is trace physiologic tricuspid valve r egurgitation. The IVC is not well visualized. Unable to adequately assess the RVSP. [facility] Electrophysiology: H is updated medication list for this problem includes: Isosorbide Mononitrate Er 30 Mg Oral Tablet Extended Release 24 Hour (Isosorbide mononitrate) ..... One tab. daily Amlodipine Besylate 5 Mg Oral Tablet (Amlodipine besylate) ..... Half a tablet daily at night Clopidogrel Bisulfate 75 Mg Oral Tablet (Clopidogrel bisulfate) ..... Tk 1 t po qd Metoprolol Tartrate 50 Mg Oral Tablet (Metoprolol tartrate) ..... Half a tablet daily Nitroglycerin 0.4 Mg Sublingual Tablet Sublingual (Nitroglycerin) ..... One tablet each 5 minutes, up to 3 tablets for chest pain. if no resolution of chest pain, call 911. Aspirin Adult Low Dose 81 Mg Oral Tablet Delayed Release (Aspirin) ..... One tab by mouth daily Lisinopril 40 Mg Oral Tablet (Lisinopril) ..... Half a tablet daily Marc Briseno Electrophysiology: B P today: 105/67 P rior BP: 136/80 (01/01/2019) Labs Reviewed: C reat: 0.58 (03/02/2017) C hol: 147 (03/02/2017) HDL: 28 (03/02/2017) LDL: 95 MG/DL (CALC) (03/02/2017) T (03/02/2017) The following medications were removed from the medication list: Hydrochlorothiazide 12.5 Mg Oral Tablet (Hydrochlorothiazide) ..... Tk 1 t po qd for hypertension His updated medication list for this problem includes: Amlodipine Besylate 5 Mg Oral Tablet (Amlodipine besylate) ..... Half a tablet daily at night Metoprolol Tartrate 50 Mg Oral Tablet (Metoprolol tartrate) ..... Half a tablet daily Hydrochlorothiazide 25 Mg Oral Tablet (Hydrochlorothiazide) ..... 1 tab daily Aspirin Adult Low Dose 81 Mg Oral Tablet Delayed Release (Aspirin) ..... One tab by mouth daily Lisinopril 40 Mg Oral Tablet (Lisinopril) ..... Half a tablet daily Marc Briseno Electrophysiology: O rders: C omplete Echo (CPT-80684) M obile Cardiac Tele (CPT-38805) 9 9215 HIGH Complex (CPT-74190) The following medications were removed from the medication list: Coreg 25 Mg Oral Tablet (Carvedilol) ..... One tab. twice daily His updated medication list for this problem includes: Amlodipine Besylate 5 Mg Oral Tablet (Amlodipine besylate) ..... Tk 1 t po qd Hydrochlorothiazide 12.5 Mg Oral Tablet (Hydrochlorothiazide) ..... Tk 1 t po qd for hypertension Metoprolol Tartrate 50 Mg Oral Tablet (Metoprolol tartrate) ..... Half a tablet daily Hydrochlorothiazide 25 Mg Oral Tablet (Hydrochlorothiazide) ..... 1 tab daily Aspirin Adult Low Dose 81 Mg Oral Tablet Delayed Release (Aspirin) ..... One tab by mouth daily Lisinopril 40 Mg Oral Tablet (Lisinopril) ..... Half a tablet daily Marc Briseno Electrophysiology: O rders: M obile Cardiac Tele (CPT-29593) M obile Cardiac Tele (CPT-56764) 9 9215 HIGH Complex (CPT-68689) The following medications were removed from the medication list: Coreg 25 Mg Oral Tablet (Carvedilol) ..... One tab. twice daily Plavix 75 Mg Oral Tablet (Clopidogrel bisulfate) ..... One tab. daily His updated medication list for this problem includes: Clopidogrel Bisulfate 75 Mg Oral Tablet (Clopidogrel bisulfate) ..... Tk 1 t po qd Metoprolol Tartrate 50 Mg Oral Tablet (Metoprolol tartrate) ..... Half a tablet daily Aspirin Adult Low Dose 81 Mg Oral Tablet Delayed Release (Aspirin) ..... One tab by mouth daily C HOL: 147 (03/02/2017) LDL: 95 MG/DL (CALC) (03/02/2017) HDL: 28 (03/02/2017) T (03/02/2017) H CT: 42.2 (03/02/2017) Platelets: 271 THOUSAND/UL (03/02/2017) R BC: 5.38 MILLION/UL (03/02/2017) BUN: 14 (03/02/2017) Creat: 0.58 (03/02/2017) Na+: 144 (03/02/2017) K+: 4.1 (03/02/2017) Cl: 106 (03/02/2017) PTT: 30 (03/02/2017) Marc Briseno Electrophysiology: B P today: 136/80 P rior BP: 160/100 (03/28/2017) Labs Reviewed: C reat: 0.58 (03/02/2017) C hol: 147 (03/02/2017) HDL: 28 (03/02/2017) LDL: 95 MG/DL (CALC) (03/02/2017) T (03/02/2017) Orders: C omplete Echo (CPT-30392) M obile Cardiac Tele (CPT-71047) 9 9215 HIGH Complex (CPT-17389) The following medications were removed from the medication list: Coreg 25 Mg Oral Tablet (Carvedilol) ..... One tab. twice daily His updated medication list for this problem includes: Amlodipine Besylate 5 Mg Oral Tablet (Amlodipine besylate) ..... Tk 1 t po qd Hydrochlorothiazide 12.5 Mg Oral Tablet (Hydrochlorothiazide) ..... Tk 1 t po qd for hypertension Metoprolol Tartrate 50 Mg Oral Tablet (Metoprolol tartrate) ..... Half a tablet daily Hydrochlorothiazide 25 Mg Oral Tablet (Hydrochlorothiazide) ..... 1 tab daily Aspirin Adult Low Dose 81 Mg Oral Tablet Delayed Release (Aspirin) ..... One tab by mouth daily Lisinopril 40 Mg Oral Tablet (Lisinopril) ..... Half a tablet daily Marc Briseno Electrophysiology: T he following medications were removed from the medication list: Coreg 25 Mg Oral Tablet (Carvedilol) ..... One tab. twice daily Plavix 75 Mg Oral Tablet (Clopidogrel bisulfate) ..... One tab. daily His updated medication list for this problem includes: Amlodipine Besylate 5 Mg Oral Tablet (Amlodipine besylate) ..... Tk 1 t po qd Clopidogrel Bisulfate 75 Mg Oral Tablet (Clopidogrel bisulfate) ..... Tk 1 t po qd Metoprolol Tartrate 50 Mg Oral Tablet (Metoprolol tartrate) ..... Half a tablet daily Nitroglycerin 0.4 Mg Sublingual Tablet Sublingual (Nitroglycerin) ..... One tablet each 5 minutes, up to 3 tablets for chest pain. if no resolution of chest pain, call 911. Aspirin Adult Low Dose 81 Mg Oral Tablet Delayed Release (Aspirin) ..... One tab by mouth daily Lisinopril 40 Mg Oral Tablet (Lisinopril) ..... Half a tablet daily Orders: C omplete Echo (CPT-60004) M obile Cardiac Tele (CPT-42981) 9 9215 HIGH Complex (CPT-65553) Marc Briseno Electrophysiology:If any angina at the next visit, will consider ECP therapy vs. IFS with possible ECI B P today: 160/100 P rior BP: 140/100 (02/21/2017) Labs Reviewed: C reat: 0.58 (03/02/2017) C hol: 147 (03/02/2017) HDL: 28 (03/02/2017) LDL: 95 MG/DL (CALC) (03/02/2017) T (03/02/2017) His updated medication list for this problem includes: Hydrochlorothiazide 25 Mg Oral Tablet (Hydrochlorothiazide) ..... 1 tab daily Coreg 25 Mg Tabs (Carvedilol) ..... One tab. twice daily Aspirin Adult Low Dose 81 Mg Oral Tbec (Aspirin) ..... One tab by mouth daily Lisinopril 40 Mg Oral Tablet (Lisinopril) ..... 1 tab daily Yenny Mccann MD Electrophysiology:EK G shows sinus rhythm H is updated medication list for this problem includes: Coreg 25 Mg Tabs (Carvedilol) ..... One tab. twice daily Aspirin Adult Low Dose 81 Mg Oral Tbec (Aspirin) ..... One tab by mouth daily Plavix 75 Mg Tabs (Clopidogrel bisulfate) ..... One tab. daily Yenny Mccann MD Electrophysiology Yenny wayne MD Electrophysiology: B P today: 140/100 P rior BP: 142/84 (02/07/2017) Yenny Mccann MD Electrophysiology:Choco ramires is still symptomatic. Plan to have cardiac cath done with Dr. Dixon. The risks and benefits of the procedure, including but not limited the risk of heart attack, , stroke, bleeding, kidney failure, and loss of limb as well as the alternative of continued medical therapy, stress testing or bypass surgery were discussed with the patient and any present family members and the patient wishes to proceed with cardiac cath and stenting. The patient and family had opportunity to discuss this with us. Written material including informed consent was given out. Orders: E KG (CPT-37868) 9 9213 LTD. Complex (CPT-33062) C ardiac Cath - Left - GC (*) Yenny Mccann MD Electrophysiology: H is updated medication list for this problem includes: Coreg 3.125 Mg Oral Tabs (Carvedilol) ..... Half tablet twice daily Aspirin Adult Low Dose 81 Mg Oral Tbec (Aspirin) ..... One tab by mouth daily Plavix 75 Mg Tabs (Clopidogrel bisulfate) ..... One tab. daily Orders: E KG (CPT-13654) 9 9214 MOD Complex (CPT-07374) S TR - Adenosine (CPT-08107) M obile Cardiac Tele (CPT-28412) Yenny Mccann MD Electrophysiology: H is updated medication list for this problem includes: Nitroglycerin 0.4 Mg Sl Subl (Nitroglycerin) ..... One tablet each 5 minutes, up to 3 tablets for chest pain. if no resolution of chest pain, call 911. Coreg 3.125 Mg Oral Tabs (Carvedilol) ..... Half tablet twice daily Aspirin Adult Low Dose 81 Mg Oral Tbec (Aspirin) ..... One tab by mouth daily Lisinopril 10 Mg Tabs (Lisinopril) ..... Twice daily Plavix 75 Mg Tabs (Clopidogrel bisulfate) ..... One tab. daily Orders: E KG (CPT-58737) 9 9214 MOD Complex (CPT-00829) S TR - Adenosine (CPT-44194) Yenny Mccann MD Cardiology Follow up : O rders: 9 9212 LTD. Complex (CPT-48464) S chedule Followup (*) His updated medication list for this problem includes: Aspirin Adult Low Dose 81 Mg Oral Tbec (Aspirin) ..... One tab by mouth daily Lisinopril 10 Mg Tabs (Lisinopril) ..... Twice daily BP today: 157/90 P rior BP: 125/86 (01/20/2015) His updated medication list for this problem includes: Cozaar 100 Mg Oral Tabs (Losartan potassium) ..... Once daily Dyazide 37.5-25 Mg Oral Caps (Triamterene-hctz) ..... Once daily Yenny Mccann MD Cardiology Follow up : H is updated medication list for this problem includes: Aspirin Adult Low Dose 81 Mg Oral Tbec (Aspirin) ..... One tab by mouth daily Plavix 75 Mg Tabs (Clopidogrel bisulfate) ..... One tab. daily Orders: S NOMED-CT: [id number] Current Medications Documented (SCT-[id number]) E KG (CPT-29642) 9 9213 LTD. Complex (CPT-62350) S chedule Followup (*) M obile Cardiac Tele (CPT-78882) Yenny Mccann MD Cardiology Follow up :ECHO shows good LVEF O rders: 9 9213 LTD. Complex (CPT-56487) S chedule Followup (*) Yenny Mccann MD Cardiology:echo in 6 months Raymundo Yost NP Cardiology: H is updated medication list for this problem includes: Aspirin Adult Low Dose 81 Mg Oral Tbec (Aspirin) ..... One tab by mouth daily Plavix 75 Mg Tabs (Clopidogrel bisulfate) ..... One tab. daily Eloisa Yost NP EP-Faxed 03/24/15 130 4:BP today: 157/90 P rior BP: 125/86 (01/20/2015) His updated medication list for this problem includes: Cozaar 100 Mg Oral Tabs (Losartan potassium) ..... Once daily Dyazide 37.5-25 Mg Oral Caps (Triamterene-hctz) ..... Once daily Yenny Mccann MD EP-Faxed 03/24/15 130 4: If symptoms do not improve, may have to give Diltiazem for rhythms Yenny Mccann MD EP-Faxed 03/24/15 1304:Sleep stud y titration. Yenny Mccann MD Cardiology: O rders: S leep Study Titration (*) Yenny Mccann MD Cardiology: O rders: C arotid Duplex Bilateral (CPT-63570) 9 9205 HIGH Complex (CPT-33678) C OMPREHENSIVE METABOLIC PANEL W/EGFR (90193) L IPID PANEL (7600) Yenny Mccann MD Cardiology: O rders: C arotid Duplex Bilateral (CPT-78454) 9 9205 HIGH Complex (CPT-88338) Yenny Mccann MD Cardiology Yenny madera MD Cardiology: H is updated medication list for this problem includes: Cozaar 100 Mg Oral Tabs (Losartan potassium) ..... Once daily Dyazide 37.5-25 Mg Oral Caps (Triamterene-hctz) ..... Once daily Yenny Mccann MD Cardiology: O rders: C arotid Duplex Bilateral (CPT-04319) 9 9205 HIGH Complex (CPT-09752) Yenny Mccann MD Cardiology: O rders: C arotid Duplex Bilateral (CPT-69465) 9 9205 HIGH Complex (CPT-00435) C OMPREHENSIVE METABOLIC PANEL W/EGFR (36719) L IPID PANEL (7600) Yenny Mccann MD Date Name X-Ray, Chest 2 View PROTHROMBIN TIME WIT H INR Partial Thromboplast in Time, Activated HEMOGLOBIN A1c PROBNP, N TERMINAL TSH, free T4, total T3 CBC (INCLUDES DIFF/P LT) LIPID PANEL COMPREHENSIVE METABO LIC PANEL, W/EGFR Carotid Duplex Bilat eral Complete Echo CT Head without cont rast Carotid Duplex Bilat eral Lipoprotein (a) DLCO - 39055 FRC - 74974 FVC - 15414 MAGNESIUM PROBNP, N TERMINAL TSH, free T4, total T3 CBC (INCLUDES DIFF/P LT) HEMOGLOBIN A1c LIPID PANEL COMPREHENSIVE METABO LIC PANEL, W/EGFR Monitor - Telemetry (Mobile Cardiac) Stress Routine Complete Echo HEMOGLOBIN A1c TSH, free T4, total T3 CBC (H/H, RBC, INDIC ES, WBC, PLT) LIPID PANEL COMPREHENSIVE METABO LIC PANEL, W/EGFR Complete Echo ECP Commercial ECP Commercial Mobile Cardiac Tele Complete Echo Cardiac Cath - Left - [facility] Partial Thromboplast in Time, Activated CBC (INCLUDES DIFF/P LT) LIPID PANEL BASIC METABOLIC PANE L W/EGFR HEMOGLOBIN A1c LIPID PANEL Cardiac Cath - Left - GC Mobile Cardiac Tele STR - Adenosine Mobile Cardiac Tele Carotid Duplex Bilat eral Mobile Cardiac Tele Complete Echo DLCO - 13921 FRC - 76011 FVC - 41497 Sleep Study Titratio n Sleep Study Titratio n LIPID PANEL COMPREHENSIVE METABO LIC PANEL W/EGFR Carotid Duplex Bilat eral HISTORY OF PROCEDURES Procedure Date Procedure Name Provider Procedure Notes S tatus Tobacco user + tobac co cessation intervention Yenny Mccann MD completed Complex e/m visit add on Yenny Mccann MD completed EKG Yenny madera MD completed Schedule Followup Yenny wayne MD [address] Mccann completed EKG Yenny madera MD completed FVC / MVV with bronchodilator - 06004 Yenny Mccann MD completed FRC - 37883 Yenny madera MD completed SpO2 w/o 6min walk/titration Yenny Mccann MD completed DLCO - 13028 Yenny madera MD completed EKG Yenny madera MD completed EKG Yenny madera MD completed EKG Yenny madera MD completed EKG Yenny madera MD completed EKG Yenny madera MD completed SNOMED-CT: [id number] Current Medications Documented ulius Siobhan ALBERT completed EKG Yenny madera MD completed SNOMED-CT: [id number] Current Medications Documented ulius Siobhan ALBERT completed Stress EKG Adolfo Mims MD completed Regadenoson, 4 units ulius Omar vaitis completed Cardiolite, 2 units Saulius Kalv aitmert ALBERT completed SPECT Images Adolfo Mims MD complet ed ZIO Event Hookup Yenny painting MD completed Schedule Followup Yenny wayne MD completed EKG Yenny madera MD completed Schedule Followup Yenny wayne MD in 1 year completed EKG Yenny madera MD completed SNOMED-CT: [id number] Current Medications Documented Yenny Mccann MD completed EKG Yenny madera MD completed SNOMED-CT: 858708582255661 Current Medications Documented Yenny Mccann MD completed BLOOD COUNT HEMOGLOBIN Yenny loweyr MD completed FVC - 74341 Yenny madera MD completed FRC - 88594 Yenny madera MD completed DLCO - 73626 Yenny madera MD completed Schedule Followup Yenny awyne MD 1 year completed SNOMED-CT: [id number] Physical Exam, Performed: Pulse Exam of Foot Yenny Mccann MD completed SNOMED-CT: 069460105 Smoking Cessation Counseling Yenny Mccann MD completed EKG Yenny madera MD completed SNOMED-CT: 396245544871788 Current Medications Documented Yenny Mccann MD completed EKG Yenny madera MD completed
[2024-10-25 06:54] VITALS: BP 121/80; PULSE 47; RESP 18; TEMP 36.2; O2SAT 96
[2024-10-25] MEDS: LACTATED RINGERS 1,000 ML 150 ML IV CONT (07:04)
--- NOTE | 2024-10-25 07:15 | P.PNAN_ITS ---
Anes - Initial Pre Proc Eval Procedure: Operation Date: 10/25/24 08:00 Proposed Procedures p Screening Colonoscopy - Jeremiah Joiner MD Date/Time: 10/25/24 07:15 Surgeon: Jeremiah Joiner MD Pre Op Diagnosis: screening colon Patient Data Age: 64 Gender: M Height: 1.63 m Weight: 93.8 kg Last Vital Signs Temp 36.2 C L 10/25/24 06:54 Pulse 47 L 10/25/24 06:54 Resp 18 10/25/24 06:54 BP 121/80 10/25/24 06:54 Pulse Ox 96 10/25/24 06:54 O2 Del Method Room Air 10/25/24 06:54 Allergies Allergy/AdvReac Type Severity Reaction Status Date / Time No Known Allergies Allergy Verified 10/25/24 06:52 Home Medications ?Medication ?Instructions ?Recorded ?Confirmed ?Type aspirin 81 mg tablet,delayed 81 mg PO DAILY 04/29/19 10/25/24 History release (Adult Aspirin Regimen) cyanocobalamin (vitamin B-12) 1,000 mcg PO DAILY 04/29/19 10/25/24 History 1,000 mcg tablet lysine 500 mg tablet 500 mg PO DAILY 04/29/19 10/25/24 History amlodipine 2.5 mg tablet 2.5 mg PO DAILY #90 tabs 06/24/24 10/25/24 Rx clopidogrel 75 mg tablet 75 mg PO DAILY #90 tabs 06/24/24 10/25/24 Rx fluticasone propionate 50 1 spray intranasal BID #48 grams 06/24/24 10/25/24 Rx mcg/actuation nasal spray,suspension (Flonase Allergy Relief) hydrochlorothiazide 25 mg tablet 25 mg PO . q.a.m. #90 tabs 06/24/24 10/25/24 Rx isosorbide mononitrate 30 mg 30 mg PO DAILY #90 tabs 06/24/24 10/25/24 Rx tablet,extended release 24 hr lisinopril 20 mg tablet 20 mg PO DAILY #90 tabs 06/24/24 10/25/24 Rx metformin 500 mg tablet,extended 500 mg PO BID #180 tabs 06/24/24 10/25/24 Rx release 24 hr metoprolol tartrate 50 mg tablet 25 mg (1/2 x 50 mg) PO BID #90 tabs 06/24/24 10/25/24 Rx terbinafine HCl 250 mg tablet 250 mg PO DAILY #90 tabs 06/24/24 10/12/24 Rx simvastatin 40 mg tablet 40 mg PO DAILY #90 tabs 07/07/24 10/25/24 Rx Patient hx anesthesia problems: none Family hx anesthesia problems: none Results Review: All pre-operative results and documents have been reviewed as part of the pre- operative evaluation. [facility] Past Medical History Medical History COVID-19 (04/26/20) COVID illness 05/05/2020 Exposure to COVID-19 virus BMI 33.0-33.9,adult Seasonal allergic rhinitis BMI 39.0-39.9,adult Personal history of tobacco use the patient smoked 2 pack of cigarettes daily for 30 years with discontinuation on 06/10/2014. 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 MRI of the brain 03/21/2023 unremarkable except for chronic mild small vessel disease and mild mucosal thickening of paranasal sinuses. Body mass index (BMI) of 40.1 to 44.9 in adult Fungal infection of nail (~05/02/21) severe mycotic changes of all toenails Emphysema of lung (~07/05/20) moderate emphysema lung bases on CT Cyst of spleen (~07/05/20) Osteopenia (~07/05/20) And -1.0 right hip with lumbar spine normal at 1.4 BMI 37.0-37.9, adult Low back pain with bilateral sciatica MRI 08/30/2020 with moderate spinal stenosis at L4-L5 and moderate neural foraminal stenosis bilaterally with [id number] neuroforaminal stenosis at L5-S1 Acute sinusitis, unspecified Encounter for prostate cancer screening Chronic anxiety Chronic depression Angina at rest Mixed hyperlipidemia IVY on CPAP Type 2 diabetes mellitus without complication, without long-term current use of insulin Essential (primary) hypertension Surgical History Surgical History Status post surgical removal of ganglion cyst Social History Social History Smoking status: Former smoker Tobacco type: cigarettes and e-cigarettes/vaping Smoking end date: 06/10/14 Alcohol intake: current Substance use: current Substance use type: marijuana Last use: daily Lack of Transportation: No Lack of Food: Sometimes True Current Housing: I Have Housing Concerned About Future Housing: No Difficulty Paying Gas/Electric Bills: No Difficulty Paying for Meds: No Currently Unemployed: No Education: Associate Degree Difficulty w/ Childcare or Family Care: No Living arrangements: with family Spiritual care concerns: No Anes - Eval Final PreProcedure Day of Procedure 10/25/24 07:15 Patient weight: obese Heart: regular rate and rhythm Lungs: clear to auscultation Airway: Mallampati scale class II Neurological: alert and oriented Last oral intake: >/= 8 hours ASA classification: IV Emergent: no Anesthetic plan: proceed Anesthesia type and monitoring: general GIVS and standard monitoring Results Review: All pre-operative results and documents have been reviewed as part of the pre- operative evaluation. Informed Consent: The patient's anesthetic plan and its attendant risks and benefits were discussed with the patient/family/POA. Questions were solicited and answers provided to the satisfaction of the patient/family/POA.
[2024-10-25 07:30] LABS: Glucose Point of Care 78 mg/dl (65-105)
--- NOTE | 2024-10-25 08:02 | PM.IMHP ---
H&P: HPI History of Present Illness Date/Time: 10/25/24 08:02 Chief Complaint: History of colon polyps Narrative: The patient has a history of colonic polyps, the last colonoscopy was approximately 5 years ago. Review of Systems Review of Systems: All systems reviewed & are unremarkable except as noted in HPI and below PMFSH Past Medical History Medical History COVID-19 (04/26/20) COVID illness 05/05/2020 Exposure to COVID-19 virus BMI 33.0-33.9,adult Seasonal allergic rhinitis BMI 39.0-39.9,adult Personal history of tobacco use the patient smoked 2 pack of cigarettes daily for 30 years with discontinuation on 06/10/2014. 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 MRI of the brain 03/21/2023 unremarkable except for chronic mild small vessel disease and mild mucosal thickening of paranasal sinuses. Body mass index (BMI) of 40.1 to 44.9 in adult Fungal infection of nail (~05/02/21) severe mycotic changes of all toenails Emphysema of lung (~07/05/20) moderate emphysema lung bases on CT Cyst of spleen (~07/05/20) Osteopenia (~07/05/20) And -1.0 right hip with lumbar spine normal at 1.4 BMI 37.0-37.9, adult Low back pain with bilateral sciatica MRI 08/30/2020 with moderate spinal stenosis at L4-L5 and moderate neural foraminal stenosis bilaterally with [id number] neuroforaminal stenosis at L5-S1 Acute sinusitis, unspecified Encounter for prostate cancer screening Chronic anxiety Chronic depression Angina at rest Mixed hyperlipidemia IVY on CPAP Type 2 diabetes mellitus without complication, without long-term current use of insulin Essential (primary) hypertension Surgical History Surgical History Status post surgical removal of ganglion cyst Social History Social History Smoking status: Former smoker Tobacco type: cigarettes and e-cigarettes/vaping Smoking end date: 06/10/14 Alcohol intake: current Substance use: current Substance use type: marijuana Last use: daily Lack of Transportation: No Lack of Food: Sometimes True Current Housing: I Have Housing Concerned About Future Housing: No Difficulty Paying Gas/Electric Bills: No Difficulty Paying for Meds: No Currently Unemployed: No Education: Associate Degree Difficulty w/ Childcare or Family Care: No Living arrangements: with family Spiritual care concerns: No Meds Home Medications and Allergies Home Medications ?Medication ?Instructions ?Recorded ?Confirmed ?Type aspirin 81 mg tablet,delayed 81 mg PO DAILY 04/29/19 10/25/24 History release (Adult Aspirin Regimen) cyanocobalamin (vitamin B-12) 1,000 mcg PO DAILY 04/29/19 10/25/24 History 1,000 mcg tablet lysine 500 mg tablet 500 mg PO DAILY 04/29/19 10/25/24 History amlodipine 2.5 mg tablet 2.5 mg PO DAILY #90 tabs 06/24/24 10/25/24 Rx clopidogrel 75 mg tablet 75 mg PO DAILY #90 tabs 06/24/24 10/25/24 Rx fluticasone propionate 50 1 spray intranasal BID #48 grams 06/24/24 10/25/24 Rx mcg/actuation nasal spray,suspension (Flonase Allergy Relief) hydrochlorothiazide 25 mg tablet 25 mg PO . q.a.m. #90 tabs 06/24/24 10/25/24 Rx isosorbide mononitrate 30 mg 30 mg PO DAILY #90 tabs 06/24/24 10/25/24 Rx tablet,extended release 24 hr lisinopril 20 mg tablet 20 mg PO DAILY #90 tabs 06/24/24 10/25/24 Rx metformin 500 mg tablet,extended 500 mg PO BID #180 tabs 06/24/24 10/25/24 Rx release 24 hr metoprolol tartrate 50 mg tablet 25 mg (1/2 x 50 mg) PO BID #90 tabs 06/24/24 10/25/24 Rx terbinafine HCl 250 mg tablet 250 mg PO DAILY #90 tabs 06/24/24 10/12/24 Rx simvastatin 40 mg tablet 40 mg PO DAILY #90 tabs 07/07/24 10/25/24 Rx Allergies Allergy/AdvReac Type Severity Reaction Status Date / Time No Known Allergies Allergy Verified 10/25/24 06:52 Vital Signs Vital Signs - 24 hr 10/25/24 06:54 Temperature 97.1 F L Pulse Rate 47 L Respiratory Rate 18 Blood Pressure 121/80 Pulse Oximetry 96 Oxygen Delivery Room Air Exam Const: General: cooperative and healthy appearing Resp: Effort & Inspection: normal respiratory effort and able to speak in complete sentences Auscultation: clear to auscultation bilaterally Cardio: Rate: regular rate Rhythm: regular rhythm GI: Inspection: normal to inspection GI Palp: No No hepatosplenomegaly present Auscultation: normal bowel sounds Rectal Exam: deferred Skin: General skin exam: normal color Psych: Appearance: grossly normal Mental Status: mental status grossly normal Assessment and Plan Assessment and plan (1) Benign colon polyp: Code(s): K63.5 - Polyp of colon Status: Acute Assessment and Plan: The patient is deemed a good candidate for the procedure. Consent signed. Will proceed.
[2024-10-25 08:23] VITALS: BP 108/60; PULSE 53; RESP 12; O2SAT 97
[2024-10-25 08:33] VITALS: BP 105/64; PULSE 46; RESP 14; O2SAT 99
[2024-10-25 08:43] VITALS: BP 129/99; PULSE 50; RESP 16; O2SAT 99
== END 2024-10-25 08:51 | disposition home or self-care (01) ==
PROVIDERS: PCP Family Medicine; Referring Provider Family Medicine; Visit Provider Internal Medicine Gastroenterology
PROC: 0DJD8ZZ Inspection of Lower Intestinal Tract, Via Natural or Artificial Opening Endoscopic (ICD-10-PCS; CPT 45378; principal; 2024-10-25 08:00)
DX: Z12.11 Encounter for screening for malignant neoplasm of colon (principal); D12.3 Benign neoplasm of transverse colon; K57.30 Diverticulosis of large intestine without perforation or abscess without bleeding; K64.8 Other hemorrhoids; E11.9 Type 2 diabetes mellitus without complications; Z87.891 Personal history of nicotine dependence; F12.90 Cannabis use, unspecified, uncomplicated; E66.9 Obesity, unspecified; Z68.35 Body mass index [BMI] 35.0-35.9, adult
CPT/HCPCS: 45385; 82948; 88305; J2003; J2704; J7120